=== PATIENT | female | born 1935 | race Caucasian/White ===

== ENCOUNTER → 2017-01-12 | Outpatient (CLI) | payer MEDICARE, BC ==
[~2017-01-12] MED LIST: AUGMENTIN 875 M1 TAB PO; BROVANA15 MCG/2 M INH; BYSTOLIC5 MG PO; COLACE100 MG PO; COUMADIN3 MG PO; CRANBERRY450 M2 PO; DUONEB 3.0-0.5 M3 ML INH; FERROUS SULFAT325 M1 PO; FISH OIL1 GM PO; HALFPRIN81 MG PO; KLONOPIN0.5 MG PO; KLOR-CON M1010 MEQ PO; LASIX20 MG PO; LIPITOR80 MG PO; MULTAQ400 MG PO; MULTIVITAMINS1 EAC1 PO; NORVASC5 M1 PO; OCEAN37.5 ML INH; PRAVACHOL20 MG PO; PROTONIX40 MG PO; PULMICORT0.5 MG/2 M INH; TYLENOL325 MG PO; ULTRAM50 MG PO; VITAMIN D31000 UNIT PO; ZOLOFT50 MG PO
== END | disposition short-term general hospital (02) ==
LOC: CLUROL 15:01
DX: N99.528 Other complication of incontinent external stoma of urinary tract (principal)

== ENCOUNTER → 2017-01-25 | Outpatient (CLI) | payer MEDICARE, BC | END | disposition short-term general hospital (02) | LOC: CLONCO 13:25 | DX: N18.9 Chronic kidney disease, unspecified (principal); D63.1 Anemia in chronic kidney disease; Z79.82 Long term (current) use of aspirin; Z79.899 Other long term (current) drug therapy | CPT/HCPCS: J1940 ==

== ENCOUNTER → 2017-02-05 | Outpatient (CLI) | payer MEDICARE, BC | END | disposition short-term general hospital (02) | LOC: CLCARD 01-29 11:12 | DX: I50.30 Unspecified diastolic (congestive) heart failure (principal); I48.0 Paroxysmal atrial fibrillation; I12.9 Hypertensive chronic kidney disease with stage 1 through stage 4 chronic kidney disease, or unspecified chronic kidney disease; N18.9 Chronic kidney disease, unspecified; I73.9 Peripheral vascular disease, unspecified; I27.2 Other secondary pulmonary hypertension ==

== ENCOUNTER → 2017-04-01 | Outpatient (CLI) | payer MEDICARE, BC | END | disposition short-term general hospital (02) | LOC: CLNEPH 13:17 | DX: I12.9 Hypertensive chronic kidney disease with stage 1 through stage 4 chronic kidney disease, or unspecified chronic kidney disease (principal); N18.4 Chronic kidney disease, stage 4 (severe); D50.8 Other iron deficiency anemias; N13.8 Other obstructive and reflux uropathy; J44.9 Chronic obstructive pulmonary disease, unspecified; I48.91 Unspecified atrial fibrillation; Z85.51 Personal history of malignant neoplasm of bladder; Z93.6 Other artificial openings of urinary tract status ==

== ENCOUNTER → 2017-04-26 | Outpatient (CLI) | payer MEDICARE, BC | END | disposition short-term general hospital (02) | LOC: CLONCO 13:42 | DX: N18.3 Chronic kidney disease, stage 3 (moderate) (principal); D63.1 Anemia in chronic kidney disease ==